=== PATIENT | female | born 1960 | race Caucasian/White ===

== ENCOUNTER 2016-08-06 10:07 | Day surgery (SDC) | payer MEDICARE, OTHER ==
--- NOTE | ~2016-08-06 | EGD ---
EGD REPORT [facility] [address] 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 Procedure: After obtaining informed consent, the endoscope was passed under direct vision. Throughout the procedure, the patient's blood pressure, pulse, and oxygen saturations were monitored continuously. The GIF [id number] was introduced through the mouth, and advanced to the third part of duodenum. The upper GI endoscopy was accomplished without difficulty. The patient tolerated the procedure well. Findings: Non-severe esophagitis with no bleeding was found in the entire esophagus. A medium-sized hiatus hernia was present. as seen on retroflexion Diffuse mild inflammation characterized by congestion (edema) and erythema was found in the entire examined stomach. Localized mild inflammation characterized by congestion (edema) and erythema was found in the duodenal bulb. Biopsies were taken with a cold forceps for evaluation of celiac disease. And giardia, whipple's disease, and enteritis and carcinoid tumor The 2nd part of the duodenum and 3rd part of the duodenum were normal. Biopsies were taken with a cold forceps for evaluation of celiac disease. And giardia, whipple's disease, and enteritis And carcinoid tumor Impression: - Non-severe reflux esophagitis. - Hiatus hernia. - Gastritis. - Duodenitis. Biopsied. - Normal 2nd part of the duodenum and 3rd part of the duodenum. Biopsied. Recommendation: - Patient has a contact number available for emergencies. The signs and symptoms of potential delayed EGD REPORT [address] [address] NAME: CAMELIA RAMOS : 60 STATUS : [place] [facility] [place] PAT#: [id number] AGE: 56 ADM/REG DATE : 08/06/16 MR#: [id number] REPORT SERV DATE: 08/06/16 DICTATED BY: GUI PACHECO DATE: 08/06/16 REPORT STATUS : Draft TRANSCRIBED BY: [facility] DATE: 08/06/16 complications were discussed with the patient. Return to normal activities tomorrow. Written discharge instructions were provided to the patient. - Return to previous diet. - Continue present medications. - Discontinue Reglan (metoclopramide). - given side effects - Await pathology results. - Return to my office as previously scheduled. - Discharge patient to home. Procedure Code(s): --- Professional --- 72122, Esophagogastroduodenoscopy, flexible, transoral; with biopsy, single or multiple Diagnosis Code(s): --- Professional --- K21.0, Gastro-esophageal reflux disease with esophagitis K44.9, Diaphragmatic hernia without obstruction or gangrene K29.70, Gastritis, unspecified, without bleeding K29.80, Duodenitis without bleeding C7A.010, Malignant carcinoid tumor of the duodenum CPT copyright 2013 [employer]. All rights reserved. The codes documented in this report are preliminary and upon sequins slinger review may be revised to meet current compliance requirements. Gui Pacheco MD GUI PACHECO MD 08/06/2016 12:04 PM This report has been signed electronically. Number of Addenda: 0 Note Initiated On: 08/06/2016 11:26 AM Scope Withdrawal Time 0 hours 0 minutes 0 seconds [address] [place] [address]
[~2016-08-06 10:07] MED LIST: ACIDOPHILU2 PO; AMB10 PO; DIGESTIVE ENZYMES PO; DITRO5 PO; ENDOCET1 TAB PO; FLEX PO; GLUCCHONDR PO; METHOC500B PO; METHOC750B PO; MOBIC15 MG PO; MOTRIN IB200 MG PO; MSCONT15 PO; MULTIPLE VIT PO; NEUR100 PO; NEUR300 PO; NORCO1 TA1 PO; ORACEA40 MG PO; PRILO PO; PRIN20 PO; PROTONIX PO; PROZAC PO; TAGAMET 800 MG800 MG PO; TOPXL25 PO; TRAZ50 PO; ULTRAM50 PO; V2 PO; [UNRECOGNIZED DRUG - REMARK] SL
[2016-11-12] MEDS ORDERED: PROZAC PO (11:36)
[2016-11-12] MEDS ORDERED: AMITIZA24 PO (11:37)
[2016-11-12] MEDS ORDERED: NORCO1 TAB PO (11:39)
[2016-11-18] MEDS ORDERED: PERCOCET 10/3251 TAB PO (11:21)
[2016-11-18] MEDS ORDERED: LETAIRIS10 MG PO (11:21)
[2016-11-18] MEDS ORDERED: XANAX1 MG PO (11:21)
[2016-11-18] MEDS ORDERED: PYR200 PO (11:22)
[2016-11-18] MEDS ORDERED: MACROBID PO (11:23)
== END 2016-08-06 23:59 | disposition home or self-care (01) ==
LOC: DMU 10:07
PROVIDERS: Internal Medicine Gastroenterology
PROC: 0DB98ZX Excision of Duodenum, Via Natural or Artificial Opening Endoscopic, Diagnostic (ICD-10-PCS; principal; 2016-08-06 10:30)
DX: K21.0 Gastro-esophageal reflux disease with esophagitis (principal); K44.9 Diaphragmatic hernia without obstruction or gangrene; K29.70 Gastritis, unspecified, without bleeding; K29.80 Duodenitis without bleeding; C7A.010 Malignant carcinoid tumor of the duodenum; G43.909 Migraine, unspecified, not intractable, without status migrainosus; I10 Essential (primary) hypertension; Z79.899 Other long term (current) drug therapy
CPT/HCPCS: 88305